=== PATIENT | female | born 1955 | race Caucasian/White ===

== ENCOUNTER 2016-10-09 08:41 | Emergency (ER) | payer OTHER ==
[~2016-10-09] VITALS: Ht 160 cm; Wt 112.0 kg
[2016-10-09 08:53] VITALS: BP 146/83; PULSE 60; RESP 16; TEMP 98.3; O2SAT 96
[2016-10-09] MEDS ORDERED: FLUO-1 PO (09:16)
[2016-10-09] MEDS ORDERED: LAMO200T PO (09:16)
[2016-10-09] MEDS ORDERED: METO25TA3 PO (09:16)
[2016-10-09] MEDS ORDERED: BUSP5TAB PO (09:16)
[2016-10-09] MEDS ORDERED: LORA-475 PO (09:16)
[2016-10-09] MEDS ORDERED: ACETAMINOPHEN/HYDROcodone 325 MG/5 MG TAB PO ONE (09:45)
[2016-10-09] MEDS ORDERED: IBUP400T20 PO (10:28)
--- NOTE | 2016-10-09 10:30 | PD ---
HPI Chief Complaint: Injury Time Seen by Provider: 09:15 Travel History International Travel<30 days: No Contact w/Intl Traveler<30days: No Traveled to known affect area: No History of Present Illness HPI 60-year-old female arrives after experiencing mechanical fall. She was on her way to work walking upon a brick walkway when she stumbled and fell to the ground. She struck her left knee and then her left upper arm. Since then she has had pain. It's worse with range of motion when involving the left upper extremity. The right knee pain is worse with palpation. She was ambulatory following the event although it took her a while to get up. She did not hit her head. No paresthesia or weakness. PFSH Past Medical History Hx Anticoagulant Therapy: No Anxiety: Yes Depression: Yes Heart Rhythm Problems: Yes Cardiovascular Problems: Yes (CHOL, ANGINA) Diabetes: No Tetanus Vaccination: > 5 Years Influenza Vaccination: Yes ?: Not Dilation and Curettage (D&C): Yes Past Surgical History Tonsillectomy: Yes Other Surgery: Yes (FACIAL RECONSTUCTION/SKIN GRAFT) Social History Alcohol Use: No (FORMER) Tobacco Use: No Substance Use: No Allergies-Medications (Allergen,Severity, Reaction): Coded Allergies: Codeine (Verified Allergy, Severe, 10/09/16) Reported Meds & Prescriptions Reported Meds & Active Scripts Active Lortab (Hydrocodone-Acetaminophen) 5-325 Mg Tab 1-2 Tab PO Q6H PRN Ibuprofen 400 Mg Tab 400 Mg PO Q8H PRN 7 Days Reported Metoprolol Tartrate 25 Mg Tab Unknown Dose PO DIRECTED Prozac (Fluoxetine HCl) 10 Mg Cap Unknown Dose PO DAILY Buspirone (Buspirone HCl) 5 Mg Tab Unknown Dose PO DIRECTED Ativan (Lorazepam) 2 Mg Tab 5 Mg PO DAILY PRN Lamotrigine 200 Mg Tab 200 Mg PO DAILY Review of Systems General / Constitutional: No: Fever, Chills Musculoskeletal: Positive: Pain Neurologic: No: Paresthesia, Sensory Disturbance Physical Exam Narrative GENERAL: 60-year-old female pleasant well-nourished well-developed SKIN: Focused skin assessment warm/dry. Trace abrasion overlying the right patella approximately 2 cm. HEAD: Atraumatic. Normocephalic. NECK: Trachea midline. No JVD. Normal range of motion MUSCULOSKELETAL: No obvious deformities. No clubbing. No cyanosis. No edema. Minimal abrasion overlying the patella on the right side. There is tenderness throughout the left upper extremity from the humeral head through the DRUJ. 2+ radial artery pulses present bilaterally. The arm is adducted and flexed the elbow on the left side. NEUROLOGICAL: Awake and alert. No obvious cranial nerve deficits. Motor grossly within normal limits. Normal speech. Data Data Last Documented VS Vital Signs Date Time Temp Pulse Resp B/P Pulse Ox O2 Delivery O2 Flow Rate FiO2 10/09/16 08:53 98.3 60 16 146/83 96 Vital signs reviewed Orders Elbow, Complete (4 Vws) (10/09/16 09:33) Forearm (2vws) (10/09/16 09:33) Humerus (Min 2vws) (10/09/16 09:33) Knee, Complete (4vws) (10/09/16 09:33) Ice/Cold Pack (10/09/16 09:33) Splint Or Brace Apply/Monitor (10/09/16 09:33) Acetamin-Hydrocod 325-5 Mg ([place] 5-325 (10/09/16 09:45) Shoulder, Limited(2vws) (10/09/16 09:33) MDM Medical Decision Making Medical Screen Exam Complete: Yes Emergency Medical Condition: Yes Medical Record Reviewed: Yes Differential Diagnosis Patellar fracture, humerus fracture, elbow fracture, contusion, forearm fracture , shoulder contusion Narrative Course Last 24 hours Impressions Shoulder X-Ray 10/09/16932 Signed Impressions: Service Date/Time: October 09:50 - CONCLUSION: Nondisplaced fracture through the greater tuberosity. No evidence glenohumeral dislocation. Piter James MD Radius/Ulna X-Ray 10/09/16932 Signed Impressions: Service Date/Time: October 10:07 - CONCLUSION: No evidence of recent bony injury. Bowing deformity of the distal shaft of the ulna with negative ulnar variance. Piter James MD Knee X-Ray 10/09/16932 Signed Impressions: Service Date/Time: October 10:15 - CONCLUSION: No evidence of recent bone injury. Minimal medial osteophytes without joint space narrowing. Minimal medial chondrocalcinosis. Piter James MD Humerus X-Ray 10/09/1633 Signed Impressions: Service Date/Time: October 10:02 - CONCLUSION: Greater tuberosity fracture. Piter James MD Elbow X-Ray 10/09/1633 Signed Impressions: Service Date/Time: October 10:05 - CONCLUSION: No evidence of recent bony injury. Piter James MD Sling applied. Pain controlled. Neurovasculature is intact. F/u with Dr Durán of orthopedics. Pt agreeable with plan and is ready for discharge. Diagnosis Primary Impression: Fall Qualified Code: W19.XXXA - Fall, initial encounter Additional Impressions: Contusion Qualified Code: S80.01XA - Contusion of right knee, initial encounter Injury of left upper extremity Qualified Code: S49.92XA - Injury of left upper extremity, initial encounter Fracture of humeral head, left, closed Qualified Code: S42.292A - Fracture of humeral head, left, closed, initial encounter Referrals: Gallo Durán MD 2 days Primary Care Physician 2 days Additional Instructions: You have a choice when it comes to health care, and we are glad that you chose [facility]. Hopefully, we have met your expectations on today's visit. You are welcome to return to [facility] at any time, as we are committed to meeting the health care needs of our community. Med/Other Pt SpecificInfo: Prescription(s) given Scripts Hydrocodone-Acetaminophen (Lortab)5-325 Mg Tab1-2 Tab PO Q6H PRN (PAIN SCALE 6 TO 10) #12 TAB Ref 0 Prov:Wade Puri MD 10/09/16 Ibuprofen 400 Mg [id number] Mg PO Q8H PRN (PAIN SCALE 6 TO 10) 7 Days Ref 0 Prov:Wade Puri MD 10/09/16 Disposition: 01 DISCHARGE HOME Condition: Stable Wade Puri MD Oct 09, 2016 10:30
--- NOTE | 2016-10-09 10:40 | RADHPO ---
EXAM DATE/TIME: 10/09/2016 09:50 [facility] COMPARISON: No previous studies available for comparison. INDICATIONS : Left shoulder pain post fall today. MEDICAL HISTORY : None. SURGICAL HISTORY : None. ENCOUNTER: Initial ACUITY: 1 day PAIN SCORE: 10/10 LOCATION: Left shoulder FINDINGS: There is a nondisplaced fracture through the base of the greater tuberosity. The glenohumeral alignm ent is maintained. No fracture seen in the humeral head. Mild degenerative changes a.c. joint. The visualized left upper ribs are intact. CONCLUSION: Nondisplaced fracture through the greater tuberosity. No evidence glenohumeral dislocation. Piter James MD on October 09, 2016 at 10:38 Board Certified Radiologist. This report was verified electronically.
--- NOTE | 2016-10-09 10:41 | RADHPO ---
EXAM DATE/TIME: 10/09/2016 10:05 [facility] COMPARISON: No previous studies available for comparison. INDICATIONS : Left elbow pain post fall today. MEDICAL HISTORY : None. SURGICAL HISTORY : None. ENCOUNTER: Initial ACUITY: 1 day PAIN SCORE: 6/10 LOCATION: Left elbow FINDINGS: Multiple view examination of the left elbow demonstrates no soft tissue swelling, joint effusion, or fracture. The osseous structures are in normal alignment. Bony mineralization is normal. CONCLUSION: No evidence of recent bony injury. Piter James MD on October 09, 2016 at 10:40 Board Certified Radiologist. This report was verified electronically.
--- NOTE | 2016-10-09 10:41 | RADHPO ---
EXAM DATE/TIME: 10/09/2016 10:02 [facility] COMPARISON: No previous studies available for comparison. INDICATIONS : Left proximal humerus pain post fall today. MEDICAL HISTORY : None. SURGICAL HISTORY : None. ENCOUNTER: Initial ACUITY: 1 day PAIN SCORE: 10/10 LOCATION: Left proximal humerus FINDINGS: Two-view examination of the humerus demonstrates a fracture of the greater tuberosity. The shaft of the humerus is intact. No radiopaque foreign bodies. CONCLUSION: Greater tuberosity fracture. Piter James MD on October 09, 2016 at 10:39 Board Certified Radiologist. This report was verified electronically.
--- NOTE | 2016-10-09 10:43 | RADHPO ---
EXAM DATE/TIME: 10/09/2016 10:07 [facility] COMPARISON: No previous studies available for comparison. INDICATIONS : Left forearm pain post fall today. MEDICAL HISTORY : None. SURGICAL HISTORY : ENCOUNTER: Initial ACUITY: 1 day PAIN SCORE: 5/10 LOCATION: Left forearm FINDINGS: 2 view examination of the forearm demonstrates the osseous structures to be grossly intact without ev idence of fracture lucency. In lateral projection, there is a dorsal bowing of the distal one third of the ulna which is of uncertain significance. There is also negative ulnar variance. No radiopaqu e foreign bodies. CONCLUSION: No evidence of recent bony injury. Bowing deformity of the distal shaft of the ulna with negative ul norma variance. Piter James MD on October 09, 2016 at 10:40 Board Certified Radiologist. This report was verified electronically.
--- NOTE | 2016-10-09 10:43 | RADHPO ---
EXAM DATE/TIME: 10/09/2016 10:15 [facility] COMPARISON: No previous studies available for comparison. INDICATIONS : Right anterior knee pain/abrasion post fall today. MEDICAL HISTORY : None. SURGICAL HISTORY : None. ENCOUNTER: Initial ACUITY: 1 day PAIN SCORE: 7/10 LOCATION: Right anterior knee FINDINGS: Four view examination of the right knee demonstrates no evidence of fracture or dislocation. Bony mi neralization is normal. The articular surfaces are intact. The suprapatellar soft tissues have a no rmal configuration. CONCLUSION: No evidence of recent bone injury. Minimal medial osteophytes without joint space narrowing. Minima l medial chondrocalcinosis. Piter James MD on October 09, 2016 at 10:41 Board Certified Radiologist. This report was verified electronically.
[2016-10-09] MEDS ORDERED: HYDR-3533 PO (11:06)
== END 2016-10-09 11:37 | disposition home or self-care (01) ==
LOC: PHED 08:41
DX: S42.292A Other displaced fracture of upper end of left humerus, initial encounter for closed fracture (principal); S49.92XA Unspecified injury of left shoulder and upper arm, initial encounter; S80.01XA Contusion of right knee, initial encounter; Z86.59 Personal history of other mental and behavioral disorders; Z86.79 Personal history of other diseases of the circulatory system; W01.0XXA Fall on same level from slipping, tripping and stumbling without subsequent striking against object, initial encounter; Y93.01 Activity, walking, marching and hiking
CPT/HCPCS: 73030; 73060; 73080; 73090; 73564; 99283